=== PATIENT | female | born 1990 | race Caucasian/White ===

== ENCOUNTER 2020-02-21 23:27 | Emergency (ER) | payer MEDICAID ==
[~2020-02-21] VITALS: Ht 154.9 cm; Wt 97.1 kg
[~2020-02-21 23:27] MED LIST: HYDR-1421
[2020-02-21 23:31] VITALS: BP 103/60
[2020-02-21] MEDS ORDERED: ALBUTEROL SULF 2.5 MG/0.5ML(0.5%) NEB SOLN NEB ONE (23:45)
[2020-02-21] MEDS ORDERED: IPRATROPIUM BROM 0.5 MG/2.5ML INH SOL NEB ONE (23:45)
[2020-02-22] MEDS ORDERED: methylPREDNISolone SOD SUCC 125 MG/2 ML VL IM ONE (01:30)
== END 2020-02-22 02:40 | disposition home or self-care (01) ==
LOC: ER 23:29
DX: J45.909 Unspecified asthma, uncomplicated (principal); F17.210 Nicotine dependence, cigarettes, uncomplicated
CPT/HCPCS: 71045; 94640; 96372; 99283; J2930; J7644